=== PATIENT | male | born 1985 | race African-American/Black ===

== ENCOUNTER 2017-02-09 17:25 | Emergency (ER) | payer OTHER ==
--- NOTE | 2017-02-14 16:16 | ER ---
ADMIT: 02/09/2017 RM/LOC: ER [facility] MR#: [id number] [id number] BONNIE RUBIO [address] [place] [address] Emergency Room Report SEX: M AGE: 31 : 1985 DATE: 02/09/2017 ADDENDUM: CHIEF COMPLAINT: Swollen eyelid. HISTORY OF PRESENT ILLNESS: This is a 31-year-old, who has had the swollen eyelid that started a couple days ago, which is progressively worsening. He says it itches, but then also hurts, it is mostly just a swollen eyelid. We did do a fluorescein. There was no uptake and no abrasion. I am placing him on Keflex, having him also use Benadryl or Zyrtec for swelling and having him follow up as needed. CLINICAL IMPRESSION: Blepharitis of the left eyelid. ERIC Gale / Ernie Napier MD / modl JOB #: [id number] CC: Ernie Napier MD, Attending Physician Nila Vargas MD, Family Physician
== END 2017-02-09 19:00 | disposition home or self-care (01) ==
LOC: ER 17:25
DX: H01.006 Unspecified blepharitis left eye, unspecified eyelid (principal)